=== PATIENT | male | born 2000 | race Caucasian/White ===

== ENCOUNTER 2025-03-08 20:53 | Emergency (ER) | payer OTHER, SELFPAY ==
[2025-03-08 20:55] VITALS: BP 118/78; PULSE 82; RESP 16; TEMP 36.4; O2SAT 98
--- NOTE | 2025-03-08 21:15 | DI.RAD_ITS ---
Exam(s) XR HAND RT COMPLETE EXAM: XR HAND RT COMPLETE CLINICAL HISTORY: punched a wall, now with hand pain. TECHNIQUE: 2D digital imaging was performed of the right hand. Three images were obtained. AP, lateral and oblique views were obtained. COMPARISON: No exams were available for comparison FINDINGS: BONES: No acute fracture is present. No bony destructive lesion is seen. JOINTS: No dislocation present. SOFT TISSUE: Normal. IMPRESSION: 1. Unremarkable radiographs of the right hand. 2. The preliminary [facility] report was reviewed. DATA REPOSITORY: RADIATION DOSE DELIVERED:
[2025-03-08] MEDS: Ibuprofen 800 MG TAB PO (21:30)
[2025-03-08] MEDS: Acetaminophen 500 MG TAB 1000 MG PO (21:30)
--- NOTE | 2025-03-08 21:59 | ED.GENADUL_ITS ---
Discharge Plan Discharge Details Chief Complaint: PsychEval Primary Care Provider: Scott Kirk ED Provider: Luisito Rahman Home Meds and New Rx's Prescriptions: No Action hydroxyzine HCl .ROUTE HPI General Mode of arrival: ambulatory . Date/Time Provider Initiated Documentation: 03/08/25 21:18 . Limitations to Documentation: no limitations . Information obtained by: patient and RN notes reviewed . HPI Narrative: Patient presents to ED for mental health evaluation. Patient reports that the voices he has heard since high school have changed and are now telling him to kill himself. This has been ongoing for the last couple of weeks. Jonas went to look for a knife but since his partner had secured them all he was unable to find anything. He subsequently punched a wall multiple times. He then snapped out of it and called his father who talked with him until patient's partner was able to get home. They then called patient's therapist and was directed to the ED for evaluation. Patient reports right hand pain only. He takes only hydroxyzine for acute anxiety but has been on medications in the past for depression and anxiety. Had suicide attempts in high school. Has not slept in 24 hours. Related Data Home Medications ?Medication ?Instructions ?Recorded ?Confirmed hydroxyzine HCl .ROUTE 03/08/25 Allergies Allergy/AdvReac Type Severity Reaction Status Date / Time gluten Allergy Unknown Unknown Verified 03/08/25 21:04 Penicillins Allergy Unknown Unknown Verified 03/08/25 21:04 General Stated Complaint: PsychEval PATEL: 2 Exam Narrative Exam Narrative: Const: WDWN male in NAD. VS per triage. HEENT: NC/AT. Normal facial exam. Neck: Supple. Trachea midline. Lungs: Normal respiratory effort. Lungs are clear. Cor: RRR without murmur. Good radial pulses. GI: Soft/ND/NT. Neuro: A+O x 3. Normal speech, mentation, gait. Cranial nerves II - XII grossly intact. No gross motor or sensory deficit. Ext: No C/C/E. Right hand with mild swelling/abrasion over the long and ring finger knuckle. Full ROM. Psych: Calm and cooperative, anxious. Auditory hallucinations sometime command now. Course Vital Signs Vital signs: Vital Signs Temperature 97.5 F L 03/08/25 20:55 Pulse 82 03/08/25 20:55 Respiratory Rate 16 03/08/25 20:55 Blood Pressure 118/78 03/08/25 20:55 Pulse Oximetry 98 03/08/25 20:55 Temperature 97.5 F L 03/08/25 20:55 Temperature Source Oral 03/08/25 20:55 Pulse 82 03/08/25 20:55 Respiratory Rate 16 03/08/25 20:55 Blood Pressure 118/78 03/08/25 20:55 Blood Pressure Position Sitting 03/08/25 20:55 Pulse Oximetry 98 03/08/25 20:55 Oxygen Delivery Method Room Air 03/08/25 20:55 Oxygen Flow Rate 0 03/08/25 20:55 Pain Level 1 03/08/25 20:55 Medical Decision Making Patient presents to ED with command hallucinations to harm self. Punched a wall today multiple times since could not find a knife. Only physical complaint is hand pain, x-rays ordered. He is otherwise medically cleared with use of the SMART form. He is requesting help and voluntary admission. Mental health to see. Right hand x-ray is negative per my read. Urinalysis normal. UDS with THC only. Patient evaluated by mental health and will stay for voluntary inpatient admit. Will give oral Ativan tonight for sleep/anxiety. Imaging Data Radiologic Study: Attestation: I personally reviewed and interpreted this imaging study as follows: Imaging: X-Ray My impression: negative hand x-ray Lab Data Lab results reviewed: Yes I reviewed the patient's lab results. [facility] Medical History Depression Anxiety Celiac disease Social History Smoking/Tobacco Use Status: Never Smoking risk assessment performed?: Yes Alcohol Intake: never Drug use: Daily Substance use type: marijuana Details: last use marijuana tonight 03/08/25 Housing: apartment Do you feel safe at home: Yes Do you feel safe in your relationship?: Yes
[2025-03-08 22:11] LABS: Glucose Negative (Negative)
[2025-03-08 22:28] LABS: Cannabinoids THC Positive (Negative); METHADONE URINE SCREEN Negative (Negative)
--- NOTE | 2025-03-08 23:33 | DI.[facility]AD_ITS ---
PROCEDURE INFORMATION: Exam: XR Right Hand Exam date and time: 03/08/2025 9:49 PM Age: 24 years old Clinical indication: Injury or trauma; Blunt trauma (contusions or hematomas); Right; Injury date: 03/08/25; Injury details: Punched a wall, now with hand pain TECHNIQUE: Imaging protocol: Radiologic exam of the right hand. Views: 3 or more views. COMPARISON: No relevant prior studies available. FINDINGS: Bones/joints: No acute fracture or dislocation. No suspicious bony lesions. Soft tissues: Unremarkable. IMPRESSION: No acute radiographic findings. If pain persists, consider repeat imaging in 5-7 days to exclude occult fracture. Dictated and Authenticated by: Modesta Krause MD. Orderin Oksana Snyder MD
[2025-03-09] MEDS: LORazepam 1 MG TAB PO (00:26)
[2025-03-09] MEDS: OLANZapine 5 MG TAB PO (00:59)
[2025-03-09] MEDS: hydrOXYzine PAMOATE 25 MG CAP PO (01:50)
--- NOTE | 2025-03-09 08:12 | CMSP_ITS ---
Date of service: 03/09/25 Time of Service: 07:14 Care Management Safety Plan Status Status: Voluntary Reason for Wait Reason for Wait: Inpatient Admission Safety Plan Safety Plan: VOLUNTARY FOR INPATIENT PSYCHIATRIC STABILIZATION.? Patient is appropriate in all interactions since arriving at [facility]; Pt has demonstrated appropriate coping and communication skills, has articulated his or her needs and concerns and is fully engaged during staff interactions. Safety plan has been established with patient, and care team, to adhere to patient goals, identify restrictions based on behavioral status, address nutrition, and determine allowed personal belongings, tools for hygiene and personal care. Determine level of activity including ambulation, level of supe rvision, visitors, and determine privileges based on behaviors and level of engagement by pt. VOLUNTARY SAFETY PLAN: 1. Will remain on suicide precautions, in paper clothes 2. Will remain in Zone B under direct supervision of one-on-one staff at all times provided by [employer]; REGLA, POTATO PEELER overhead crane operator. 3. May have paper cups, plates, finger foods as well as a cardboard spoon with which to eat meals. 4. Follow [facility] Management of the Admitted Behavioral Health Patient policy. 5. Shower available in Zone B without restriction. 6. Personal belongings-soft items permitted at RN discretion. 7. Visitors-none at this time. 8. Activities: soft cart items, hospital tablets (Netflix/Monteview+/music) approved per RN discretion. 9.? Bathroom available in Zone B without restriction. 10. Phone: limited to [facility] cordless phone at RN discretion. Due to VOLUNTARY status, if patient wishes to leave [facility], staff will contact [facility] Crisis Screener ([phone]) and Instructional Paraprofessional ([phone]) as soon as possible. In the event of elopement, notify [facility] Police ([phone]). Patient is currently voluntarily at [facility] and seeking inpatient admission when a bed becomes available. [facility] Frontline Warp Knitting Machine Operator will continue seeking placement. Please contact the Instructional Paraprofessional ([phone]) and [facility] Warp Knitting Machine Operator ([phone]) for any needed changes in the Safety Plan. Safety plan has been provided to interdepartmental care team.
--- NOTE | 2025-03-09 08:12 | PDOC.CMSAFE ---
Date of service: 03/09/25 Time of Service: 07:14 Care Management Safety Plan Status Status: Voluntary Reason for Wait Reason for Wait: Inpatient Admission Safety Plan Safety Plan: VOLUNTARY FOR INPATIENT PSYCHIATRIC STABILIZATION.? Patient is appropriate in all interactions since arriving at [facility]; Pt has demonstrated appropriate coping and communication skills, has articulated his or her needs and concerns and is fully engaged during staff interactions. Safety plan has been established with patient, and care team, to adhere to patient goals, identify restrictions based on behavioral status, address nutrition, and determine allowed personal belongings, tools for hygiene and personal care. Determine level of activity including ambulation, level of supervision, visitors, and determine privileges based on behaviors and level of engagement by pt. VOLUNTARY SAFETY PLAN: 1. Will remain on suicide precautions, in paper clothes 2. Will remain in Zone B under direct supervision of one-on-one staff at all times provided by [employer]; REGLA, CDL DRIVER paving supervisor. 3. May have paper cups, plates, finger foods as well as a cardboard spoon with which to eat meals. 4. Follow [facility] Management of the Admitted Behavioral Health Patient policy. 5. Shower available in Zone B without restriction. 6. Personal belongings-soft items permitted at RN discretion. 7. Visitors-none at this time. 8. Activities: soft cart items, hospital tablets (Netflix/Radha+/music) approved per RN discretion. 9.? Bathroom available in Zone B without restriction. 10. Phone: limited to [facility] cordless phone at RN discretion. Due to VOLUNTARY status, if patient wishes to leave [facility], staff will contact [facility] Crisis Screener ([phone]) and Rolled Ham Lacer ([phone]) as soon as possible. In the event of elopement, notify [facility] Police ([phone]). Patient is currently voluntarily at [facility] and seeking inpatient admission when a bed becomes available. [facility] Frontline Supply Room Clerk will continue seeking placement. Please contact the Rolled Ham Lacer ([phone]) and [facility] Supply Room Clerk ([phone]) for any needed changes in the Safety Plan. Safety plan has been provided to interdepartmental care team.
--- NOTE | 2025-03-09 08:13 | CMPROGNOTE_ITS ---
Date of service: 03/09/25 Time of Service: 11:14 Care Management Progress Note Progress Note Text Progress Note Text: CM discussed Nasir's plan of care with Zone b RN Celena, ED charge loader, household appliances salesperson and ED provider. Per RN, he has been appropriate. Nasir has been accepted to [facility]. He will transport via [employer] at 3:15. CM will continue to follow. Status Status: Voluntary Social Determinants of Health Screening Will the Patient Participate in the Screening?: Unable to obtain
--- NOTE | 2025-03-09 09:08 | NUR.NOTE ---
Faxed all documents to Shilpi Nino and [facility]
--- NOTE | 2025-03-09 10:51 | ED.PROG1_ITS ---
Date of service: 03/09/25 Time of Service: 10:51 Psychiatric Border Handoff Update Brief Story: Patient was signed out to me pending placement. Patient remained stable throughout the night and slept well. Did receive a call from Dr. Pacheco. She accepts the patient for transfer at [facility]. I have extensively reviewed the treatment plan with the patient. I have addressed all patient concerns at this time. I have also discussed the plan with the admitting physician and they agree with the current assessment and plan and have agreed to assume responsibility for the patient. All parties demonstrate verbal understanding and agreement with our assessment and plan at this time. The documentation in this chart was dictated using [employer] Part [employer]Kids Calendar software. Please excuse any dictation errors. Status: voluntary Able to leave: would need physician/KEYSHAWN and crisis evaluation prior to leaving Behavioral Concerns: Command hallucinations Potential Disposition: [facility] Barriers to Disposition: None Medical Concerns: None Mediation Reconciliation performed: Yes Code Status ordered: Yes Diet ordered: Yes Discharge Plan Disposition Patient Disposition: Psychiatric Hospital/Unit Specific Psychiatric Facility: [facility] Condition: Good Discharge Details Clinical Impression: Command hallucination, Suicidal ideation Primary Care Provider: Scott Kirk ED Provider: Karthik Suarez Home Meds and New Rx's Prescriptions: No Action hydroxyzine HCl .ROUTE Discharge Instructions Additional Instructions: Patient history has a history of auditory hallucinations, however recently they have transition to command hallucinations with a component of suicidal ideations. Patient was signed out to ut pending placement. Patient remained stable throughout the night and slept well. Did receive a call from Dr. Pacheco. She accepts the patient for transfer at [facility]. I have extensively reviewed the treatment plan with the patient. I have addressed all patient concerns at this time. I have also discussed the plan with the admitting physician and they agree with the current assessment and plan and have agreed to assume responsibility for the patient. All parties demonstrate verbal understanding and agreement with our assessment and plan at this time. The documentation in this chart was dictated using [employer] software. Please excuse any dictation errors.
[2025-03-09 11:05] VITALS: BP 108/71; PULSE 92; TEMP 36.4; O2SAT 98
--- NOTE | 2025-03-09 20:48 | PDOC.MHCN ---
Date of service: 03/09/25 Time of Service: 22:50 PHQ-9 Over the last 2 weeks, how often have you been bothered by any of the following problems? 1. Little interest or pleasure in doing things: more than half the days 2. Feeling down, depressed, or hopeless: nearly every day 3. Trouble falling or staying asleep, or sleeping too much: several days 4. Feeling tired or having little energy: nearly every day 5. Poor appetite or overeating: more than half the days 6. Feeling bad about yourself - or that you are a failure or have let yourself and your family down: nearly every day 7. Trouble concentrating on things, such as reading the newspaper or watching television: nearly every day 8. Moving or speaking so slowly that other people could have noticed? - Or the opposite - being so fidgety or restless that you have been moving around a lot more than usual: more than half the days 9. Thoughts that you would be better off or of hurting yourself in some way: nearly every day Total score: 22 If you checked off any problems, how difficult have these problems made it for you to do your work, take care of things at home, or get along with other people?: very difficult Source: Developed by Drs. Luisito Jimenez, Sadia Pitts, Tani Green and colleagues, with an educational mckay from [employer]. Suicide Severity Rate CSSRS Have you wished you were or wished you could go to sleep and not wake up?: Yes Have you actually had any thoughts of killing yourself?: Yes CSSRS2 Have you been thinking about how you might do this?: No Have you had these thoughts and had some intention of acting on them?: No Have you started to work out or worked out the details of how to kill yourself? Do you intend to carry out this plan?: No CSSRS3 Have you ever done anything, started to do anything or prepared to do anything to end your life?: No CSSRS4 Was this within the past three months?: No Screening Score Total Score: 4 Screening: Positive Mental Health Emergency Note Release [facility] release signed:: Yes Reason for Visit The client presented to the [facility] ED with his partner and partners mother. The client states he has been hearing voices telling him to harm himself. The client is known to [facility] in the past and is not known to this clinician. The client self reports to have never been hospitalized in the past for his mental health. In the last 2 weeks has the pt presented for ES prior to today?: No Client Information Client is: New Well Housed: Yes Non Suicidal Self Injury Current: No History: yes, The client reports engaging in NSSI by cutting his thigh in the past. Safety Risk/Harm to Self or Others Current Ideation to Harm Self or Others: Yes to self. Intent: yes, has intent. Plan: no.does not have a plan. History of suicide attempt: No history of suicide attempt reported Risk: Does risk to harm exist?: yes. Access to means: Yes. Types of Means: Medication. Counseling provided: No Risk: Moderate Risk Duty to warn indicated: No Asssessment/Mental Status Appearance: Disheveled Attitude: Cooperative and Friendly Behavior: Unremarkable Speech: Normal Affect: Cogruent with mood Mood: Anxious Thought process: Goal directed Hallucinations: yes, (The client reported visual and auditory hallucinations of voices telling him to harm himself and seeing hands and faces coming out of things and looking at him.) Visual and Auditory Delusions: No Attention: Unremarkable Perception: Not impaired Orientation: Fully orientated Memory: Intact Insight: Fair Judgement: Fair Neurovegetative Symptoms Sleep: Decrease Appetitie: Decrease Interests: Decrease Energy: Decrease Libido: Not applicable Additional Issues: Assaultive/Threatening Behavior: No Medical Concerns: No Client engaged in active self harm w/weapon: No Threatening to run away: No Child reported abuse/neglect: No Voluntarily presenting for services: Yes Domestic violence is a concern: No Extreme Psychosis or extreme behavior is present: No Impression The client is a 24 biological male who resides in [place], [place] with his significant other MARÍA. The client presents with a disheveled appearance and is seen sitting in his hospital bed wearing ghosh sweatpants and black t-shirt. Affect appears to be congruent with mood. Speech is in normal range. Client is cooperative and friendly with this clinician; they report their mood as anxious and out of it. Thought process appears to be congruent with mood. The client reported visual and auditory hallucinations of voices telling him to harm himself and seeing hands and faces coming out of things and looking at him. There are no delusions observed by this clinician. Cognitive assessment reveals orientation to person, place and time. Per collateral report of the ED nurse Frieda the client stated he had held a knife to his wrist a few days ago and had punched a wall tonight. The client reported he had an episode tonight at home. The client states he has been hearing voices telling him to find a knife tonight. The client stated his partner MARÍA had hid all the SHARPS within the home. The client stated the voices became angry that he could not find a knife and next thing he knew he was hitting the wall in his bedroom. The client stated he had called his dad and then his therapist and his therapist recommended he go to the hospital. The client reports experiencing brief impulses that are almost uncontrollable due to the voices. The client states he usually experiences these episodes a couple times a month and recently has been having a couple of them a week. The client denied current HI and NSSI with no intent or plan. The client reports a past of NSSI of cutting his thigh with the last time being 6 months ago. The client states he has engaged in the NSSI off and on since he was in high school. The client reports SI with no plan and intent rated as a 5 out of 10. The client states he does not personally want to harm himself but is worried about the voices and the episodes that follow. The client expressed wanting a referral for individual therapy and psychiatry, but also was open to inpatient treatment for stabilization and to get on medications. Plan/Disposition Recommended Disposition: Hospitalization facilities contacted. Plan: The client will remain at the [facility] ED until placement is secured. The client will receive once a day reassessments by emergency services until placed. Reports/communication Outcome discussed with: ED/Personnel
== END 2025-03-09 16:02 ==
PROVIDERS: Emergency Medicine; Emergency Provider Student in an Organized Health Care Education/Training Program; PCP Family Medicine
DX: R44.0 Auditory hallucinations (principal); R45.851 Suicidal ideations; M79.641 Pain in right hand; W22.8XXA Striking against or struck by other objects, initial encounter
CPT/HCPCS: 00123; 80307; 96127; 99285; G0378; 73130; 81003